=== PATIENT | female | born 1965 | race Caucasian/White ===

== ENCOUNTER 2017-01-06 16:12 | Outpatient (CLI) | payer OTHER ==
[2017-01-20] MEDS ORDERED: [UNRECOGNIZED DRUG - OTHER] (16:43)
[2017-01-20] MEDS ORDERED: CLARITIN10 M2 PO (16:43)
== END 2017-01-06 23:00 ==
LOC: LAB SRH 16:12
DX: R19.7 Diarrhea, unspecified (principal)
CPT/HCPCS: 90112; 90124; 90455; 99784